=== PATIENT | male | born 1955 | race Caucasian/White ===

== ENCOUNTER 2021-01-12 09:47 | Emergency (ER) | payer MEDICARE, SELFPAY ==
[2021-01-12] MEDS: SODIUM CHLORIDE 0.9% 1,000 ML 1000 ML IV (09:52)
[2021-01-12 09:59] VITALS: BP 143/90; PULSE 60; O2SAT 96
[2021-01-12 10:00] VITALS: BP 138/90; PULSE 63; PULSE 65; RESP 16; TEMP 36.6; O2SAT 96; BMI 28.7
[2021-01-12 10:22] LABS: Add Manual Diff / Slide Review NO; Basophils Absolute Auto 0 /uL (0-100); Basophils Percent Auto 0.8 % (0-2); Eosinophils Absolute Auto 200 /uL (0-450); Eosinophils Percent Auto 3.5 % (2-4); Hematocrit 43.5 % (41-53); Hemoglobin 14.9 g/dL (13.5-17.5); Lymphocytes Absolute Auto 1500 /uL (1100-4500); Lymphocytes Percent Auto 26.7 % (25-40); Mean Corpuscular HGB Conc 34.2 % (30-36); Mean Corpuscular Hemoglobin 33.9 PG (26-34); Mean Corpuscular Volume 99.2 fL (80-100); Monocytes Absolute Auto 600 /uL (0-900); Monocytes Percent Auto 10.1 % (3-14); Neutrophils Absolute Auto 3200 /uL (1500-7000); Neutrophils Percent Auto 58.9 % (50-75); Platelet Count 205 X10^3/uL (150-400); Red Blood Cell Count 4.38 X10^6/uL (4.5-5.9); Red Cell Distribution Width 13.6 % (11.6-14.8); White Blood Cell Count 5.5 X10^3/uL (4.5-11.0)
--- NOTE | 2021-01-12 10:24 | ED_ITS ---
HPI - General Adult General Chief complaint: Dizziness Stated complaint: Dizziness/sob/palps x1 1/2 hours Time Seen by Provider: 01/12/21 09:49 Source: patient Mode of arrival: Ambulatory Limitations: no limitations History of Present Illness HPI narrative: Patient is a 65-year-old male. No prior diagnosed medical issues he was sent to the emergency department from the PA over at the [facility] for evaluation of ?in no regular heart rhythm ?and the patient feeling dizzy. He states that 3 episodes over the past couple weeks he has felt like his heart was skipping beats. He states that it feels like it is fast and also slow. He has been lightheaded at the time. At the time of my evaluation he was not having any symptoms. He states that it occurred this morning and he went to the clinic over at the [facility]. They physician's fleet assistant over there stated that she did not have and monitor nor an EKG however on the pulse ox his heart rate was ?erratic. Related Data Allergies Allergy/AdvReac Type Severity Reaction Status Date / Time No Known Drug Allergies Allergy Verified 01/12/21 10:00 Review of Systems Constitutional Constitutional: Denies fatigue, Denies fever(s) and Denies headache(s) ENT Ears, Nose, Mouth, and Throat: Reports dizziness, Denies headache(s) and Denies disequilibrium Cardiovascular Cardiovascular: Denies chest pain, Reports rapid heart rate, Reports irregular heart rhythm, Reports dyspnea and Reports slow heart rate Respiratory Respiratory: Denies cough and Reports dyspnea Gastrointestinal Gastrointestinal: Denies abdominal pain, Denies nausea and Denies vomiting Genitourinary Genitourinary: Denies dysuria Genitourinary: Denies dysuria Musculoskeletal Musculoskeletal: Denies arthralgias and Denies myalgias Integumentary/Breasts Skin/Breast: Denies rash Neurologic Neurologic: Denies behavioral changes, Reports dizziness, Denies headache(s) and Denies disequilibrium Psychiatric Psychiatric: Denies behavioral changes Endocrine Endocrine: Denies fatigue Hematologic/Lymphatic On Anticoagulants: No Allergic/Immunologic Allergic/Immunologic: Denies urticaria Patient History Medical History Patient denies medical problems Social History Smoking Status: Current every day smoker Smoking Status: Current every day smoker tobacco type: cigarettes alcohol intake frequency: holidays/special occasions only Substance Use Type: does not use Exam Initial Vital Signs Initial Vital Signs: Vital Signs Temperature 98 F 01/12/21 10:00 Pulse Rate 65 01/12/21 10:00 Respiratory Rate 16 01/12/21 10:00 Blood Pressure 138/90 01/12/21 10:00 Const General: cooperative and comfortable Limitations: mental status not altered HENMT Head: normal to inspection and normocephalic Eyes General: appearance normal, both eyes and all related structures Resp Effort & Inspection: normal respiratory effort Auscultation: clear to auscultation bilaterally Cardio Rate: regular rate Rhythm: regular rhythm GI Inspection: non-distended Palpation: soft General: bladder normal to palpation Skin Lesions: no lesions Rashes: no rashes Neuro General: patient alert, patient awake and patient oriented x3 Cognition: normal cognition Speech: speech normal Gait: normal gait Motor: muscle tone normal throughout Extrem General: normal to inspection, capillary refill normal and No edema Psych Appearance: grossly normal and well kempt Scores GCS [place] coma scale eye opening: Spontaneous Jorge coma scale verbal response: Orientated Jorge coma scale motor response: Obey commands Jorge coma scale total score: 15 Course Orders Ordered: ED Orders 01/12/21 09:50 EKG-12 Lead Stat 01/12/21 10:14 Complete Blood Count AUTO DIFF Stat Comprehensive Metabolic Panel Stat Ethanol (ETOH) Stat Lipase Stat Troponin & CK Cardiac Panel Stat Discontinued Medications Sodium Chloride (Normal Saline 0.9%) 1,000 mls @ 1,000 mls/hr IV BOLUS ONE Stop: 01/12/21 10:48 Last Admin: 01/12/21 09:52 Dose: 1,000 mls/hr Documented by: SJ Vital Signs Vital signs: Vital Signs - 8 hr 01/12/21 10:00 Temperature 98 F Pulse Rate 65 Respiratory Rate 16 Blood Pressure 138/90 Medical Decision Making Lab Data Lab results reviewed: Yes I reviewed the patient's lab results. Result diagrams: 01/12/21 10:14 01/12/21 10:14 Labs: Lab Results 01/12/21 01/12/21 Range/Units 10:14 10:14 WBC 5.5 (4.5-11.0) X10^3/uL RBC 4.38 L (4.5-5.9) X10^6/uL Hgb 14.9 (13.5-17.5) g/dL Hct 43.5 (41-53) % MCV 99.2 (80-100) fL MCH 33.9 (26-34) PG MCHC 34.2 (30-36) % RDW 13.6 (11.6-14.8) % Plt Count 205 (150-400) X10^3/uL Neut % (Auto) 58.9 (50-75) % Lymph % (Auto) 26.7 (25-40) % [place] % (Auto) 10.1 (3-14) % Eos % (Auto) 3.5 (2-4) % Baso % (Auto) 0.8 (0-2) % Neut # (Auto) 3200 (8798-8797) /uL Lymph # (Auto) 1500 (9821-0871) /uL [place] # (Auto) 600 (0-900) /uL Eos # (Auto) 200 (0-450) /uL Baso # (Auto) 0 (0-100) /uL Sodium 136 L (137-145) mmol/L Potassium 4.3 (3.4-5.1) mmol/L Chloride 107 (98-107) mmol/L Carbon Dioxide 22 (22-32) mmol/L BUN 19 (9-20) mg/dL Creatinine 0.81 (0.66-1.25) mg/dL Estimated GFR > 60.0 (>60) mL/min BUN/Creatinine Ratio 23.5 H (6-22) Glucose 85 (80-110) mg/dL Calcium 9.3 (8.4-10.2) mg/dL Total Bilirubin 0.6 (0.2-1.3) mg/dL AST 38 (17-59) IU/L ALT 20 (<50) IU/L Alkaline Phosphatase 110 (38-126) U/L Total Creatine Kinase 151 (55-170) U/L CK-MB (CK-2) 1.71 (<2.37) ng/mL CK-MB (CK-2) Rel Index 1.1 L (1.5-5.0) % Troponin I < 0.012 (0.01-0.034) ng/mL Total Protein 7.2 (6.3-8.2) g/dL Albumin 4.1 (3.5-5.0) g/dL Globulin 3.1 (1.7-4.1) g/dL Albumin/Globulin Ratio 1.3 (1.0-2.8) Lipase 68 (23-300) U/L Ethyl Alcohol < 10 ( - 10) mg/dL Point of Care Testing Glucose POC 138 Point of care testing: Point of Care Testing Glucose POC 138 ECG Data Attestation: I personally reviewed and interpreted this ECG as follows: Prior ECG tracings: not available for review Interpretation: Sinus rhythm Ventricular rate is 62 Normal axis Normal QRS QTC 406 Right bundle branch block No ST T wave changes MDM Narrative Medical decision making narrative: Patient is asymptomatic upon arrival. He has remainedAsymptomatic. No ectopy on the monitor. EKG is unremarkable. Labs are unremarkable. Afebrile. Unsure the exact etiology however he has not had any ectopy here. He was given information with regard to making contact with the primary doctor. Informed him that he needed to talk with his primary doctor about a Holter monitor. Unfortunately we are unable to order 1 out of the emergency department. Patient was given return precautions and follow-up instructions. He expressed understanding and agreement. Discharge Plan Departure Patient Disposition: Home Clinical Impression: Palpitations Instructions: DI for Palpitations Activity Restrictions/Additional Instructions: I recommend that you contact the health administrative resources associate here at the hospital at [phone]. This individual can help you establish a primary doctor here in this area. Otherwise you need to contact primary doctor's in your own area. You do need to discuss the indications for a Holter monitor. Return to the emergency department for any new or worsening symptoms
[2021-01-12 10:30] VITALS: BP 133/79; PULSE 57; RESP 15; O2SAT 95
[2021-01-12 10:36] LABS: Alanine Aminotransferase 20 IU/L (<50); Albumin 4.1 g/dL (3.5-5.0); Albumin Globulin Ratio 1.3 (1.0-2.8); Alkaline Phosphatase 110 U/L (38-126); Aspartate Aminotransferase 38 IU/L (17-59); BUN Creatinine Ratio 23.5 (6-22); Bilirubin Total 0.6 mg/dL (0.2-1.3); Blood Urea Nitrogen 19 mg/dL (9-20); Calcium 9.3 mg/dL (8.4-10.2); Carbon Dioxide 22 mmol/L (22-32); Chloride 107 mmol/L (98-107); Creatine Kinase 151 U/L (55-170); Estimated Glomerular Filt Rate > 60.0 mL/min (>60); Ethanol (ETOH) < 10 mg/dL; Globulin 3.1 g/dL (1.7-4.1); Glucose 85 mg/dL (80-110); Lipase 68 U/L (23-300); Potassium 4.3 mmol/L (3.4-5.1); Sodium 136 mmol/L (137-145); Total Protein 7.2 g/dL (6.3-8.2)
[2021-01-12 10:46] LABS: Troponin I < 0.012 ng/mL (0.01-0.034)
[2021-01-12 10:50] LABS: CKMB % Relative Index 1.1 % (1.5-5.0); Creatine Kinase MB 1.71 ng/mL (<2.37)
[2021-01-12 10:52] LABS: HEMOLYSIS 61 (0-50)
[2021-01-12 11:00] VITALS: BP 147/96; PULSE 70; RESP 18; O2SAT 95
== END 2021-01-12 11:13 | disposition home or self-care (01) ==
PROVIDERS: Emergency Provider Emergency Medicine
DX: R06.00 Dyspnea, unspecified (principal); R00.2 Palpitations
CPT/HCPCS: 36415; 80053; 80320; 82550; 82553; 83690; 84484; 85025; 93005; 96360; 99284